=== PATIENT | female | born 1960 | race Caucasian/White ===

== ENCOUNTER 2017-04-19 20:55 | Emergency (ER) | payer OTHER ==
[2017-04-19 21:17] VITALS: BP 142/88
[2017-04-19] MEDS ORDERED: LIDOCAINE 2% 10 ML MDV ONE (21:18)
--- NOTE | 2017-04-19 21:39 | ED Physician Documentation ---
PD HPI UPPER EXT INJURY - Stated complaint Stated Complaint: R WRIST LAC - Chief complaint Chief Complaint: Laceration - History obtained from History obtained from: Patient - History of Present Illness Location: Left, Arm Type of injury: Laceration Where injury occurred: Work Timing - onset: Today Timing - details: Abrupt onset Associated symptoms: No: Weakness, Numbness, Tingling Contributing factors: No: Anticoagulated Similar symptoms before: Has not had sx before Recently seen: Not recently seen - Additonal information Additional information: Patient is a 56 year old female wiht no significant past medical history who is presenting to the emergency department for arm laceration. Patient states that she was at work on a ladder. when she stepped down she cut it on stainless steel freezer. patient reports she is up to date with her tetanus. Review of Systems Constitutional: denies: Fever, Chills Nose: denies: Rhinorrhea / runny nose Throat: denies: Oral lesions / sores, Sore throat Cardiac: denies: Chest pain / pressure GI: denies: Nausea, Vomiting Skin: reports: Laceration (s) Musculoskeletal: reports: Extremity pain Neurologic: denies: Generalized weakness, Focal weakness, Numbness PD PAST MEDICAL HISTORY - Past Medical History Past Medical History: No - Past Surgical History Past Surgical History: Yes General: Gastric surgery - Present Medications Home Medications: Ambulatory Orders Medication Instructions Recorded Confirmed No Known Home Medications [No 04/19/17 04/19/17 Known Home Medications] - Allergies Allergies/Adverse Reactions: Allergies Allergy/AdvReac Type Severity Reaction Status Date / Time amoxicillin Allergy Anaphylaxis Verified 04/19/17 21:12 azithromycin Allergy Anaphylaxis Verified 04/19/17 21:12 Penicillins Allergy Anaphylaxis Verified 04/19/17 21:12 Latex, Natural Rubber AdvReac Rash Verified 04/19/17 21:12 - Social History Does the pt smoke?: No Smoking Status: Never smoker Does the pt drink ETOH?: No Does the pt have substance abuse?: No - Immunizations Immunizations are current?: Yes PD ED PE NORMAL - Vitals Vital signs reviewed: Yes - General General: Alert and oriented X 3, No acute distress - HEENT HEENT: Atraumatic, PERRL - Cardiac Cardiac: RRR, No murmur - Respiratory Respiratory: No respiratory distress - Abdomen Abdomen: Non distended - Neuro Neuro: Alert and oriented X 3, No motor deficit, No sensory deficit, Normal speech - Psych Psych: Normal mood, Normal affect PD ED PE EXPANDED - Extremities Extremities: Right forearm (2 cm laceration) Results - Vitals Vitals: Vital Signs - 24 hr 04/19/17 21:09 Temperature 36.3 C L Heart Rate 62 Respiratory 16 Rate Blood Pressure 142/88 H O2 Saturation 99 Oxygen O2 Source Room air Procedures - Laceration (location) right forearm Length in cm: 2 Wound type: Linear Neurovascular status: Sensory intact, Motor intact, Vascular intact Anesthesia: Lidocaine 2% Wound Preparation: Irrigated copiously NS Skin layer closure: Nylon, Size #-0 - enter number, Sutures - enter # (5) Other: Patient tolerated well, No complications, Neurovascular intact, Dressing applied, Tetanus UTD Complexity: Simple PD MEDICAL DECISION MAKING - ED course Complexity details: reviewed old records, re-evaluated patient, considered differential, d/w patient ED course: Patient was seen and examined at bedside. Patient's wound was repaired as described above. Patient tolerated treatment well and was stable for discharge with outpatient follow up. Departure - Departure Disposition: 01 Home, Self Care Clinical Impression: Laceration Condition: Good Instructions: ED Laceration All Follow-Up: Morris Mera MD [Primary Care Provider] - Within 1 week (suture removal) Comments: Your symptoms today are being caused by a laceration. sutures were placed and will need to be removed in 7 days. You should keep the area clean and dry. You can apply topical antibiotic as needed and take motrin or tylenol as needed for pain. You should monitor for signs of infection (increased redness, swelling, discharge) and follow up with your pmd for any of those signs. you may return to the emergency department at any time for new, worsening or uncontrollable symptoms.
== END 2017-04-19 21:40 | disposition home or self-care (01) ==
LOC: ED 20:55
DX: S61.511A Laceration without foreign body of right wrist, initial encounter (principal); W26.8XXA Contact with other sharp object(s), not elsewhere classified, initial encounter; Y99.0 Civilian activity done for income or pay
CPT/HCPCS: 12001; 99282; 99283